=== PATIENT | female | born 1990 | race African-American/Black ===

== ENCOUNTER 2016-05-12 22:42 | Observation (INO) | payer SELFPAY ==
[~2016-05-12] VITALS: Ht 154.9 cm; Wt 58.6 kg
[~2016-05-12 22:42] MED LIST: ENDOCET 5-3251 EACH PO; EXTRA STRENGTH500 M1 PO; FERROUS SULFAT324 M1 PO; IBUPROFEN800 MG PO; IRON325 M1 PO; LO-DOSE ASPIRIN81 M1 PO; MACROBID100 MG PO; PAIN RELIEF EX500 MG PO; PREDNISONE10 MG PO; PREDNISONE5 M1 PO; PRENATAL TABLE1 EAC3 PO
[2016-05-12 23:48] LABS: EOSINOPHIL (%) 0 % (0-5); HEMATOCRIT 35.4 % (36.0-46.0); IMMATURE GRANULOCYTE (%) 0.2 % (0.0-0.7); IMMATURE GRANULOCYTE COUNT 0.1 K/uL; LYMPHOCYTE COUNT 0.9 K/uL (1.0-2.8); MCH 25.5 PG (29.0-34.0); MCHC 33.6 G/DL (30.0-36.0); MCV 75.8 FL (83-99); MEAN PLAT.VOLUME 8.8 uM^3 (9.5-12.4); MONOCYTE (%) 6.5 % (3-12); MONOCYTE COUNT 0.3 K/uL (0-0.8); NEUTROPHIL (%) 74.5 % (45-76); NEUTROPHIL COUNT 3.6 K/uL (1.8-6.4); PLATELET COUNT 325 K/uL (156-360); RBC DIS.WIDTH-CV 14.1 % (11.8-14.6); RED BLOOD COUNT 4.67 M/uL (3.80-5.20); WHITE BLOOD COUNT 4.8 K/uL (4.1-10.2)
[2016-05-12 23:57] LABS: CHLORIDE 98 mEq/L (99-109); POTASSIUM 3.5 mEq/L (3.7-5.4); SODIUM 127 mEq/L (136-147)
[2016-05-12 23:59] LABS: GLUCOSE 106 mg/dL (70-99)
[2016-05-13 00:01] LABS: ANION GAP 10 MEQ/L (2-14)
[2016-05-13 00:03] LABS: GFR ESTIMATE (CALCULATED) > 59 mL/min/
[2016-05-13 00:04] LABS: UREA NITROGEN (BUN) 8 mg/dL (9-23)
[2016-05-13 01:30] LABS: INFLUENZA A VIRAL ANTIGEN NEGATIVE; INFLUENZA B VIRAL ANTIGEN NEGATIVE
[2016-05-13] MEDS ORDERED: CEFTIN500 MG PO (01:52)
[2016-05-13] MEDS ORDERED: DAILY VITE1 EAC1 PO (01:52)
[2016-05-13] MEDS ORDERED: CLEAR EYES COOL15 ML BOTH EYES (01:53)
[2016-05-13 02:11] LABS: TROP-I INTERPRETATION NEGATIVE; TROPONIN-I < 0.01 ng/mL (0.0-0.30)
[2016-05-13 02:28] LABS: D-DIMER ELISA 1.45 mg/L FEU (< 0.57)
[2016-05-13 04:11] LABS: QUANTITATIVE HCG < 4.0 MIU/ML
[2016-05-13 04:40] LABS: BILIRUBIN NEGATIVE; BLOOD NEGATIVE; COLOR YELLOW ((YELLOW)); GLUCOSE (STRIP) NEGATIVE; KETONES 40; LEUKOCYTES NEGATIVE; NITRITE NEGATIVE; PROTEIN (STRIP) NEGATIVE; SPECIFIC GRAVITY 1.008 (1.000-1.030); UROBILINOGEN 0.2 MG/DL (0.2-1.0)
[2016-05-13 04:41] LABS: ADD MIUA? NO; UCUL ADDED? NO
[2016-05-13 05:07] LABS: SAMPLE HEMOLYSIS CHECK 0; SAMPLE ICTERIC CHECK 0; SAMPLE LIPEMIA CHECK 0
[2016-05-13 05:56] VITALS: BP 113/73
[2016-05-13 08:00] VITALS: BP 121/67
[2016-05-13 12:00] VITALS: BP 118/73
[2016-05-13] MEDS ORDERED: AMOX TR-K CLV1 EAC4 PO (15:25)
[2016-05-13] MEDS ORDERED: LEVAQUIN750 MG PO (15:51)
== END 2016-05-13 16:55 | disposition home or self-care (01) ==
LOC: EME 22:42 → EDOF 05-13 04:59 → 5WEST 05-13 04:59 → EDOF 05-13 04:59 → 5WEST 05-13 05:46
PROVIDERS: Emergency Medicine
DX: R50.9 Fever, unspecified (principal); M32.9 Systemic lupus erythematosus, unspecified; R00.0 Tachycardia, unspecified; H65.91 Unspecified nonsuppurative otitis media, right ear; J02.9 Acute pharyngitis, unspecified; R05 Cough; R09.81 Nasal congestion; E87.1 Hypo-osmolality and hyponatremia; M25.50 Pain in unspecified joint
CPT/HCPCS: 71020; 71275; 80048; 81003; 83605; 84443; 84484; 84702; 85025; 85379; 85651; 86140; 87040; 87086; 87502; 93005; 99281; 99285; G0378; J0696; J1720; J2405; J7030; J7050

== ENCOUNTER → 2016-07-30 | Outpatient (CLI) | payer OTHER ==
[~2016-07-30] MED LIST changes: +AMOX TR-K CLV1 EAC4 PO; +CEFTIN500 MG PO; +CLEAR EYES COOL15 ML BOTH EYES; +DAILY VITE1 EAC1 PO; +LEVAQUIN750 MG PO
== END | disposition home or self-care (01) ==
LOC: NUC 08:20
DX: R94.31 Abnormal electrocardiogram [ECG] [EKG] (principal); R07.9 Chest pain, unspecified; L93.0 Discoid lupus erythematosus
CPT/HCPCS: 78452; 93017; A9500; J2785